=== PATIENT | male | born 1975 | race Caucasian/White ===

== ENCOUNTER 2016-07-30 09:47 | Inpatient (IN) | payer OTHER ==
[2016-07-30] MEDS ORDERED: Thiamine IV* 100 MG, Folic Acid IV* 1 MG, Multiple Vitamin IV ADULT* 10 ML in NS 0.9% 1... IV ONE (10:20)
[2016-07-30] MEDS ORDERED: LORazepam INJ* 2 MG/ML 1 ML VIAL IV PUSH ONE (10:21)
[2016-07-30 10:33] LABS: Hematocrit 47 % (42-52); Hemoglobin 16.3 g/dl (14.0-18.0); Mean Corpuscular HGB Conc 34 g/dl (31-36); Mean Corpuscular Hemoglobin 31 pg (27-31); Mean Corpuscular Volume 91 fL (80-94); Mean Platelet Volume 8 um3 (7.4-10.4); Red Blood Count 5.22 10^6/ul (4.0-5.4); Red Cell Distribution Width 13 % (10.5-15); White Blood Count 6.5 10^3/ul (3.5-10.8)
[2016-07-30] MEDS ORDERED: Ondansetron INJ* 2 MG/ML VIAL IV ONE (10:45)
[2016-07-30] MEDS ORDERED: Ondansetron INJ* 2 MG/ML VIAL ONE (10:46)
[2016-07-30 11:12] LABS: ALT 155 U/L (7-52); AST 184 U/L (13-39); Albumin 5.2 g/dL (3.2-5.2); Alkaline Phosphatase 76 U/L (34-104); Anion Gap 17 mmol/L (2-11); Blood Urea Nitrogen 12 mg/dL (6-24); CO2 Carbon Dioxide 26 mmol/L (22-32); Chloride 94 mmol/L (101-111); EGFR Non-African American 83.2 (>60); Globulin 2.4 g/dL (2-4); Glucose 98 mg/dL (70-100); Phosphorus 2.8 mg/dL (2.5-5.0); Potassium 4.1 mmol/L (3.5-5.0); Sodium 137 mmol/L (133-145); Total Protein 7.6 g/dL (6.4-8.9)
[2016-07-30 11:29] LABS: Acetaminophen < 15 mcg/mL; Alcohol 161 mg/dL (<10); Salicylate < 2.50 mg/dL (<30)
[2016-07-30 11:39] LABS: TSH (Thyroid Stimulating Horm) 1.82 mcIU/mL (0.34-5.60)
[2016-07-30 12:02] LABS: Urine Bacteria Absent (Absent); Urine Bilirubin Negative (Negative); Urine Glucose Negative (Negative); Urine Nitrite Negative (Negative)
--- NOTE | 2016-07-30 12:17 | ED ---
Substance Abuse/Use - HPI Summary HPI Summary: Pt here w/ concern for ETOH withdrawal and SI. H/o ETOH abuse but has been sober 1 year. Started drinking again 2 weeks ago and has been consuming multiple liters of ETOH each day. Last drink was "sometimes this morning". He's here as he feels suicidal since "falling off the wagon". He's been here before for SI s/p ETOH binge - went through withdrawal at his home on his own last time. Reports he had similar sx then plus seizures. Came in after physical sx improved. Today, he did not waste time coming in - feels shaky, sweating, hallucinating when he closes his eyes ("fear and loathing in [place] stuff"), nausea however has not vomited since here. Reports he vomited multiple times prior to arrival - believes he vomited blood. No known h/o esophageal varices or xin mckeon tears. Denies christiano ab pain and no diarrhea. - History Of Current Complaint Chief Complaint: EDDetoxRequest Stated Complaint: MHE/ETOH/WITHDRAWAL Time Seen by Provider: 07/30/16 10:18 Hx Obtained From: Patient - Allergies/Home Medications Allergies/Adverse Reactions: Allergies Allergy/AdvReac Type Severity Reaction Status Date / Time No Known Allergies Allergy Verified 05/03/16 11:22 PMH/Surg Hx/FS Hx/Imm Hx Previously Healthy: Yes Endocrine/Hematology History: Denies: Hx Anticoagulant Therapy, Hx Blood Disorders, Hx Diabetes Cardiovascular History: Denies: Hx Hypertension, Hx Pacemaker/ICD GI History: Denies: Hx Gastrointestinal Bleed History: Denies: Hx Renal Disease Musculoskeletal History: Denies: Hx Rheumatoid Arthritis, Hx Osteoporosis, Hx Scoliosis Sensory History: Denies: Hx Hearing Aid Neurological History: Denies: Hx Headaches, Other Neuro Impairments/Disorders Psychiatric History: Reports: Hx Post Traumatic Stress Disorder, Hx Suicide Attempt, Hx Substance Abuse - ETOH Denies: Hx Eating Disorder, Hx Panic Disorder, Hx Inpatient Treatment, Hx of Violent Episodes Against Others - Surgical History Surgery Procedure, Year, and Place: Rt HAND - SCAPHOID FX - PIN REMAIN Infectious Disease History: No Infectious Disease History: Denies: Traveled Outside the [place] in Last 30 Days - Social History Occupation: Employed Full-time, Retired - [employer] Lives: Alone - MOVED 2 WEEKS AGO FROM [place] WITH PARTNER Alcohol Use: Daily - "MULTIPLE LITERS DAILY X 2 WEEKS" Alcohol Amount: excessive, unable to quantify Hx Substance Use: No Substance Use Type: Reports: None Smoking Status (MU): Light Every Day Tobacco Smoker - SINCE STARTED DRINKING AGAIN Have You Smoked in the Last Year: Yes - occasional Review of Systems Positive: Chills, Fatigue, Skin Diaphoresis Positive: Blurred Vision Positive: Chest Pain - WHEN ASKED DETAILS, PT REPORTS THIS IS PART OF "PAIN ALL OVER" Negative: Shortness Of Breath, Cough Positive: Vomiting, Nausea. Negative: Abdominal Pain, Diarrhea Positive: no symptoms reported Musculoskeletal: Other - HURTS ALL OVER Negative: Rash, Bruising Positive: Headache Psychological: Other - SEE HPI All Other Systems Reviewed And Are Negative: Yes Physical Exam Triage Information Reviewed: Yes Vital Signs On Initial Exam: Initial Vitals Temp Pulse Resp BP Pulse Ox 97.2 F 100 16 155/119 98 07/30/16 09:49 07/30/16 09:49 07/30/16 09:49 07/30/16 09:49 07/30/16 09:49 Vital Signs Reviewed: Yes Appearance: Positive: Well-Nourished, Ill-Appearing, Pain Distress Skin: Positive: Warm, Other - MOIST Head/Face: Positive: Normal Head/Face Inspection Eyes: Positive: Normal, EOMI, Conjunctiva Clear - ANICTERIC Respiratory/Lung Sounds: Positive: Breath Sounds Present. Negative: Rales, Rhonchi, Wheezes Cardiovascular: Positive: Normal, RRR, Pulses are Symmetrical in both Upper and Lower Extremities, S1, S2. Negative: Leg Edema Left, Leg Edema Right Abdomen Description: Positive: No Organomegaly, Soft, Other: - mild epigastric TTP Bowel Sounds: Positive: Present Musculoskeletal: Positive: Normal, Strength/ROM Intact Neurological: Positive: Normal, Sensory/Motor Intact, Alert, Oriented to Person Place, Time, CN Intact II-III Psychiatric: Positive: Anxious - Makayla Coma Scale Coma Scale Total: 15 Diagnostics - Vital Signs Vital Signs Temp Pulse Resp BP Pulse Ox 07/30/16 11:00 15 138/77 07/30/16 10:42 18 07/30/16 10:32 18 07/30/16 10:30 19 130/100 07/30/16 10:08 14 143/88 07/30/16 09:49 97.2 F 100 16 155/119 98 - Laboratory Lab Results: Lab Results 07/30/16 07/30/16 07/30/16 Range/Units 10:23 10:23 10:23 WBC 6.5 (3.5-10.8) 10^3/ul RBC 5.22 (4.0-5.4) 10^6/ul Hgb 16.3 (14.0-18.0) g/dl Hct 47 (42-52) % MCV 91 (80-94) fL MCH 31 (27-31) pg MCHC 34 (31-36) g/dl RDW 13 (10.5-15) % Plt Count 200 (150-450) 10^3/ul MPV 8 (7.4-10.4) um3 Neut % (Auto) 80.2 (38-83) % Lymph % (Auto) 12.0 L (25-47) % [place] % (Auto) 6.5 (1-9) % Eos % (Auto) 0.3 (0-6) % Baso % (Auto) 1.0 (0-2) % Absolute Neuts (auto) 5.3 (1.5-7.7) 10^3/ul Absolute Lymphs (auto) 0.8 L (1.0-4.8) 10^3/ul Absolute Monos (auto) 0.4 (0-0.8) 10^3/ul Absolute Eos (auto) 0 (0-0.6) 10^3/ul Absolute Basos (auto) 0.1 (0-0.2) 10^3/ul Absolute Nucleated RBC 0 10^3/ul Nucleated RBC % 0 INR (Anticoag Therapy) 0.82 L (0.89-1.11) APTT 28.0 (26.0-36.3) seconds Sodium 137 (133-145) mmol/L Potassium 4.1 (3.5-5.0) mmol/L Chloride 94 L (101-111) mmol/L Carbon Dioxide 26 (22-32) mmol/L Anion Gap 17 H (2-11) mmol/L BUN 12 (6-24) mg/dL Creatinine 1.00 (0.67-1.17) mg/dL Est GFR ( Amer) 107.0 (>60) Est GFR (Non-Af Amer) 83.2 (>60) BUN/Creatinine Ratio 12.0 (8-20) Glucose 98 (70-100) mg/dL Calcium 10.0 (8.6-10.3) mg/dL Phosphorus 2.8 (2.5-5.0) mg/dL Magnesium 2.0 (1.9-2.7) mg/dL Total Bilirubin 0.90 (0.2-1.0) mg/dL AST 184 H (13-39) U/L ALT 155 H (7-52) U/L Alkaline Phosphatase 76 (34-104) U/L Total Protein 7.6 (6.4-8.9) g/dL Albumin 5.2 (3.2-5.2) g/dL Globulin 2.4 (2-4) g/dL Albumin/Globulin Ratio 2.2 (1-3) TSH 1.82 (0.34-5.60) mcIU/mL Urine Color Urine Appearance Urine pH (5-9) Ur Specific [place] (1.010-1.030) Urine Protein (Negative) Urine Ketones (Negative) Urine Blood (Negative) Urine Nitrate (Negative) Urine Bilirubin (Negative) Urine Urobilinogen (Negative) Ur Leukocyte Esterase (Negative) Urine WBC (Auto) (Absent) Urine RBC (Auto) (Absent) Urine Bacteria (Absent) Urine Glucose (Negative) Salicylates < 2.50 (<30) mg/dL Acetaminophen < 15 mcg/mL Serum Alcohol 161 H (<10) mg/dL 07/30/16 Range/Units 11:45 WBC (3.5-10.8) 10^3/ul RBC (4.0-5.4) 10^6/ul Hgb (14.0-18.0) g/dl Hct (42-52) % MCV (80-94) fL MCH (27-31) pg MCHC (31-36) g/dl RDW (10.5-15) % Plt Count (150-450) 10^3/ul MPV (7.4-10.4) um3 Neut % (Auto) (38-83) % Lymph % (Auto) (25-47) % [place] % (Auto) (1-9) % Eos % (Auto) (0-6) % Baso % (Auto) (0-2) % Absolute Neuts (auto) (1.5-7.7) 10^3/ul Absolute Lymphs (auto) (1.0-4.8) 10^3/ul Absolute Monos (auto) (0-0.8) 10^3/ul Absolute Eos (auto) (0-0.6) 10^3/ul Absolute Basos (auto) (0-0.2) 10^3/ul Absolute Nucleated RBC 10^3/ul Nucleated RBC % INR (Anticoag Therapy) (0.89-1.11) APTT (26.0-36.3) seconds Sodium (133-145) mmol/L Potassium (3.5-5.0) mmol/L Chloride (101-111) mmol/L Carbon Dioxide (22-32) mmol/L Anion Gap (2-11) mmol/L BUN (6-24) mg/dL Creatinine (0.67-1.17) mg/dL Est GFR ( Amer) (>60) Est GFR (Non-Af Amer) (>60) BUN/Creatinine Ratio (8-20) Glucose (70-100) mg/dL Calcium (8.6-10.3) mg/dL Phosphorus (2.5-5.0) mg/dL Magnesium (1.9-2.7) mg/dL Total Bilirubin (0.2-1.0) mg/dL AST (13-39) U/L ALT (7-52) U/L Alkaline Phosphatase (34-104) U/L Total Protein (6.4-8.9) g/dL Albumin (3.2-5.2) g/dL Globulin (2-4) g/dL Albumin/Globulin Ratio (1-3) TSH (0.34-5.60) mcIU/mL Urine Color Yellow Urine Appearance Clear Urine pH 8.0 (5-9) Ur Specific [place] 1.020 (1.010-1.030) Urine Protein 2+(100 mg/dl) H (Negative) Urine Ketones 1+ H (Negative) Urine Blood Negative (Negative) Urine Nitrate Negative (Negative) Urine Bilirubin Negative (Negative) Urine Urobilinogen Negative (Negative) Ur Leukocyte Esterase Negative (Negative) Urine WBC (Auto) Absent (Absent) Urine RBC (Auto) Trace(0-2/hpf) (Absent) Urine Bacteria Absent (Absent) Urine Glucose Negative (Negative) Salicylates (<30) mg/dL Acetaminophen mcg/mL Serum Alcohol (<10) mg/dL Result Diagrams: 07/30/16 10:23 07/30/16 10:23 Lab Statement: Any lab studies that have been ordered have been reviewed, and results considered in the medical decision making process. Re-Evaluation - Re-Evaluation First Eval Change: Improved - shakiness, anxiety, and nausea improved - was able to rest for a brief period - ice chips are helping his stomach discomfort; feels comfortable resting in stretcher at this time Course/Dx - Course Course Of Treatment: Pt here w/ ETOH intoxication and withdrawal sx - WAM score of 12 upon initial eval - provided w/ Banana bag, zofran, and ativan which improved sx - vitals have been stable. Will admit for ETOH withdrawal - spoke w / Dr. Smith and Nilesh Banegas NP. Pt will need evaluation as well for - Christoph neon sign maker aware. - Diagnoses Provider Diagnoses: EtOH dependence, Suicidal ideation - Physician Notifications Discussed Care Of Patient With: Dr. Smith. Nilesh Banegas NP. Christoph Afua Discharge - Discharge Plan Condition: Stable Disposition: ADMITTED TO [facility]
[2016-07-30 12:21] LABS: Benzodiazepine Urine Screen None Detected (None Detect)
[2016-07-30] MEDS ORDERED: NS 0.9% 1000 ML* 1,000 ML IV SCH (12:30)
[2016-07-30] MEDS ORDERED: LORazepam TAB(*) 1 MG PO SCH ×2 (13:00)
[2016-07-30] MEDS ORDERED: Diazepam TAB(*) 10 MG PO SCH (13:00)
[2016-07-30] MEDS ORDERED: LORazepam INJ* 2 MG/ML 1 ML VIAL ONE (13:16)
[2016-07-30] MEDS: LORazepam INJ* 2 MG/ML 1 ML VIAL IV SCH ×5 (13:17→23:51)
[2016-07-30] MEDS: Ondansetron INJ* 2 MG/ML VIAL IV PRN (14:30)
[2016-07-30 16:01] LABS: Hematocrit 47 % (42-52); Hemoglobin 16.1 g/dl (14.0-18.0)
[2016-07-30] MEDS: Acetaminophen TAB* 325 MG PO PRN (16:48)
--- NOTE | 2016-07-30 20:38 | HP ---
ATTENDING PHYSICIAN ADDENDUM NOW INCLUDED ON THIS REPORT HISTORY AND PHYSICAL: DATE OF ADMISSION: 07/30/16 PRIMARY CARE PROVIDER: Dr. Arturo Shelton. ATTENDING PHYSICIAN WHILE IN THE HOSPITAL: Dr. Rosa Smith *(report dictated by Nilesh Banegas NP). CHIEF COMPLAINT: 1. Suicidal ideation 2. EtOH withdrawal. HISTORY OF PRESENTING ILLNESS: Mr. Burrows is a 41-year-old male patient, he has a history of alcoholism. He had been sober for 1 year but he had been having some issues going on at home. He is going through a breakup. About 2 weeks ago, he moved out of his house. He was under a lot of stress and he reverted back to drinking. He ultimately went from his house, moved into an apartment, he states he has drinking straight for 2 weeks. He got to the point today that he knew that he needed to stop and he felt worthless because he had thrown away his sobriety that he worked so hard for. He said he was going to try to buy a gun but could not. He was going to try to drink himself to . He knew that if he did not stop drinking, he probably ultimately would commit suicide either by cutting his wrist or by other means. He got in touch with a friend who helped him. He stopped drinking in the recreation director last night and he noted this morning that he was shaking. He was vomiting profusely. He was very anxious and restless. He called his friend and his friend brought him into the ER for evaluation. He denies having any chest pain or any shortness of breath. He says he has not had any fevers. He denies having any abdominal discomfort. Says that he had been again sober for a year prior to this episode. He was concerned. He came to the ER. When he came into the ER, he scored a 12 on the WAM protocol. Because of this, there was concern for his stability for mental health, so the hospitalist service was asked to evaluate in admission. PAST MEDICAL HISTORY: Significant for EtOH abuse. PAST SURGICAL HISTORY: He has had hand surgery. HOME MEDICATIONS: Denied. ALLERGIES TO MEDICATIONS: Include no known drug allergies. FAMILY HISTORY: Unknown. SOCIAL HISTORY: He is an alcoholic, he had been sober for a year and states that he typically goes on binge episodes of drinking. He denies any other recreational drug abuse. Surrogate decision maker is his friend, Michael. REVIEW OF SYSTEMS: There is no documented fever. He denied any significant weight change. There was no double vision. There is no ear discharge. He denies having any rhinorrhea. There is no sore throat. No thyroid enlargement. Denies having any chest pain. There is no orthopnea, no nocturnal dyspnea. No abdominal pain. There were episodes of nausea with vomiting particularly starting last night when he had stopped drinking. He denies any lightheadedness, denies any loss of consciousness. Denies any pruritus and no skin ulcerations. Review of 14 systems completed, all others negative. PHYSICAL EXAMINATION GENERAL: At this time, Mr. Burrows is a 41-year-old male patient. He appears well-developed, well-nourished. He does not appear to be in any acute distress. He is awake and alert, he is oriented x3. VITAL SIGNS: Reveals blood pressure 138/77, pulse 80, respirations 15, O2 sat 98%, and temperature 97.2. HEENT: Head: Atraumatic, normocephalic. Eyes: EOMs are intact. Sclerae anicteric and not pale. Throat: Oral mucosa appears to be moist. No oropharyngeal erythema. NECK: Supple. LUNGS: Clear to auscultation bilaterally. No wheezes, rales, or rhonchi HEART: S1, S2. Regular rate and rhythm with no murmurs, rubs, or gallops. ABDOMEN: Soft, flat, nontender. Bowel sounds present. EXTREMITIES: Pulses were 2+ throughout. He was able to move all 4 extremities with 5/5 strength. NEUROLOGIC: The patient is awake, alert, and oriented x3. Tongue midline. Deliverer Merchandise were equal. No gross focal deficits. SKIN: Grossly intact. DIAGNOSTIC STUDIES/LAB DATA: Today revealed WBC of 6.5, RBC of 5.22, hemoglobin of 16.3, hematocrit of 47, and platelet count of 200. INR 0.82, PTT 28. Sodium 137, potassium 4.1, chloride 94, bicarb 26, BUN 12, creatinine 1, glucose 98, calcium 10.0, phos 2.8, total bili 0.9, mag 2, AST 184, ALT 155, albumin of 5.2. TSH of 1.82. Urine showed 2 proteins, 1 ketone. Toxicology: He had 161 alcohol level. He had an EKG obtained today as well which revealed a normal sinus rhythm at a rate of 76. No ST elevations or T-wave inversions. Old medical records were reviewed. ASSESSMENT AND PLAN: Mr. Burrows is a 41-year-old male patient coming into the ER today with a request for detox. Also, stating that he was suicidal and had been undergoing a 2-week period of heavy binge drinking, he says at least a liter of alcohol a day. Hospitalist service was asked to evaluate for admission. His WAM score here was 12 when he first came in, it was felt that he was not going to be stable for mental health. Hospitalist service was asked to evaluate. He will be admitted under observation status for: 1. EtOH abuse with signs of withdrawal. At this point, he does have a history of seizures with withdrawing. So, I am going to put him on standing Ativan taper. In addition to this, put him on the WAM protocol. He is suicidal, so I did put him on a one-to-one watch. He did get a banana bag here in the ER, we will go ahead and continue thiamine and a multivitamin and folic acid. We will hydrate him and start him on a clear liquid diet. I suspect the nausea and vomiting is from him withdrawing from alcohol. We will continue to monitor. There was report of one episode of him vomiting blood. I will get a repeat H and H later today, but I suspect if anything, he may have a mild Sariah-Esposito tear. We will monitor should he continue with this and obviously, we will get a formal GI evaluation and I will put him on a PPI empirically in the form of Protonix. 2. Suicidal ideation. He will be on a one-to-one safety watch. In addition to this, we will go ahead and get a psychiatric evaluation. 3. DVT prophylaxis. He is low risk, he will be placed on SCDs. 4. Fluid, electrolytes, and nutrition. He can have clear liquid diet. 5. Code status. Full code. TIME SPENT: On this admission was 60 minutes, greater than half the time was spent [id number] with the patient, obtaining my history of physical; the other half time was spent going over the plan of care with the patient and implementing plan of care. I did discuss the plan of care with my attending, Dr. Smith; she is in agreement. NILESH BANEGAS NP ADDENDUM: Mr. Burrows is a 41-year-old male with history of alcoholism, who presents to the hospital with alcohol intoxication and withdrawing symptoms as well as hallucinations. The patient also has suicidal ideation. The patient is going to be admitted to our hospital with a diagnosis of alcohol withdrawal. He is also going to be placed on suicide observation and psychiatric consult is going to be requested in the future. For further details of the patient's presentation and plan, please see history and physical dictated by Nilesh Banegas on 07/30/16 with which I agree. ROSA SMITH MD CC: [place] [id number]/[facility] #: [id number]/[facility] #: [id number] MTDD
--- NOTE | 2016-07-30 21:12 | HP ---
HISTORY AND PHYSICAL: * ADDENDUM: Mr. Burrows is a 41-year-old male with history of alcoholism, who presents to the hospital with alcohol intoxication and withdrawing symptoms as well as hallucinations. The patient also has suicidal ideation. The patient is going to be admitted to our hospital with a diagnosis of alcohol withdrawal. He is also going to be placed on suicide observation and psychiatric consult is going to be requested in the future. For further details of the patient's presentation and plan, please see history and physical dictated by Nilesh Banegas on 07/30/16 with which I agree. [id number]/[facility] #: [id number] MTDD
[2016-07-31] MEDS: Ondansetron INJ* 2 MG/ML VIAL IV PRN (02:04)
[2016-07-31] MEDS: LORazepam INJ* 2 MG/ML 1 ML VIAL IV SCH ×5 (02:04→17:34)
[2016-07-31] MEDS: Acetaminophen TAB* 325 MG PO PRN ×4 (03:30→23:29)
[2016-07-31 06:10] LABS: Hematocrit 44 % (42-52); Mean Corpuscular HGB Conc 34 g/dl (31-36); Mean Corpuscular Hemoglobin 31 pg (27-31); Mean Corpuscular Volume 92 fL (80-94); Mean Platelet Volume 9 um3 (7.4-10.4); Red Blood Count 4.81 10^6/ul (4.0-5.4); Red Cell Distribution Width 13 % (10.5-15); White Blood Count 5.8 10^3/ul (3.5-10.8)
[2016-07-31 06:24] LABS: BUN/Creatinine Ratio 15.5 (8-20); Calcium 9.1 mg/dL (8.6-10.3); Direct Bilirubin 0.3 mg/dL (0.03-0.18); EGFR African American 103.4 (>60); EGFR Non-African American 80.4 (>60); Globulin 2.3 g/dL (2-4); Indirect Bilirubin 1.1 mg/dL (0.3-1.0); Potassium 3.8 mmol/L (3.5-5.0); Total Bilirubin 1.4 mg/dL (0.2-1.0); Total Protein 6.3 g/dL (6.4-8.9)
[2016-07-31] MEDS: Omeprazole CAP* 20 MG PO SCH (06:43)
[2016-07-31] MEDS: Folic Acid TAB* 1 MG PO SCH (08:59)
[2016-07-31] MEDS: Multivitamins/Minerals TAB PO SCH (08:59)
[2016-07-31] MEDS: Thiamine TAB* 100 MG TAB PO SCH (08:59)
[2016-07-31] MEDS ORDERED: Folic Acid TAB* 1 MG PO SCH (09:00)
[2016-07-31] MEDS ORDERED: Multivitamins/Minerals TAB PO SCH (09:00)
--- NOTE | 2016-07-31 09:27 | PN ---
Subjective Date of Service: 07/31/16 Interval History: This is a 41 yo gentleman with a h/o alcoholism who presented in withdrawal with suicidal ideations. Patient was admitted to the medical floor for withdrawal. Patient had been sober for several years, but has been on a binge for the last 2 weeks. Patient reports improvement in his anxiety and tremulousness. Denies n/v/d or abd pain. Appetite is poor but he is tolerating a regular diet. He is unwilling to comment on his feelings of self harm today, but reports "he doesn' t feel anything" today. Objective Active Medications: Acetaminophen (Tylenol Tab*) 650 mg PO Q4H PRN PRN Reason: PAIN Last Admin: 07/31/16 03:30 Dose: 650 mg Folic Acid (Folvite Tab*) 1 mg PO DAILY CHIDI Last Admin: 07/31/16 08:59 Dose: 1 mg Sodium Chloride (Ns 0.9% 1000 Ml*) 1,000 mls @ 100 mls/hr IV PER RATE CHIDI Lorazepam (Ativan Inj*) 0 mg IV .PER WAM SCORE [facility] PRN Reason: Protocol Last Admin: 07/31/16 02:04 Dose: 1 mg Lorazepam (Ativan Inj*) 1 mg IV Q12H CHIDI PRN Reason: Taper Stop: 08/02/16 09:59 Last Admin: 07/31/16 07:24 Dose: 1 mg Multivitamins/Minerals (Theragran/Minerals Tab*) 1 tab PO DAILY CHIDI Last Admin: 07/31/16 08:59 Dose: 1 tab Omeprazole (Prilosec Cap*) 20 mg PO 0600 [facility] Last Admin: 07/31/16 06:43 Dose: 20 mg Ondansetron HCl (Zofran Inj*) 4 mg IV Q6H PRN PRN Reason: NAUSEA Last Admin: 07/31/16 02:04 Dose: 4 mg Thiamine HCl (Vitamin B-1 Tab*) 100 mg PO DAILY [facility] Last Admin: 07/31/16 08:59 Dose: 100 mg Vital Signs: Temp Pulse Resp BP Pulse Ox 98.0 F 63 16 114/64 96 07/31/16 07:09 07/31/16 07:09 07/31/16 08:24 07/31/16 07:09 07/31/16 07:09 Oxygen Devices in Use Now: None Appearance: Somewhat guarded, but well appearing, mild tremor Respiratory: Symmetrical Chest Expansion and Respiratory Effort, Clear to Auscultation Cardiovascular: NL Sounds; No Murmurs; No JVD, RRR Extremities: No Edema Skin: No Rash or Ulcers Neurological: Alert and Oriented x 3, - - mild tremor present in hands Result Diagrams: 07/31/16 05:47 07/31/16 05:47 Additional Lab and Data: . Assess/Plan/Problems-Billing Assessment: This is a 41 yo gentleman with a history of alcoholism who presented in withdrawal with suicidal ideations. He has had a long period of sobriety, but recently was on a binge of ~2 weeks. Psychiatry requested a medical admission for his withdrawal. - Patient Problems (1) Alcohol withdrawal Comment: Noted improvement, but still require regular benzos He has experienced seizures and hallucinations with prior withdrawal Cont WAM monitoring with scheduled tapering doses of Ativan for seizure prophylaxis (2) Alcoholic hepatitis Comment: Noted transaminitis with elevated Tbili Likely alcohol related No abdominal pain or evidence of ascites Repeat CMP tomorrow (3) Suicidal ideation Comment: Psych consult pending Cont 1:1 observation at this time Status and Disposition: Patient requires medical care for alcohol withdrawal. Psych consult is pending to help determine appropriate disposition. Anticipate readiness for discharge in 2-3 days.
[2016-07-31] MEDS: Gabapentin CAP(*) 300 MG PO SCH ×2 (12:50→20:48)
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
[2016-08-01 06:02] LABS: Albumin 4.1 g/dL (3.2-5.2); BUN/Creatinine Ratio 9.3 (8-20); Calcium 9.1 mg/dL (8.6-10.3); EGFR African American 127.3 (>60); Globulin 2.4 g/dL (2-4); Potassium 3.7 mmol/L (3.5-5.0); Total Bilirubin 0.9 mg/dL (0.2-1.0); Total Protein 6.5 g/dL (6.4-8.9)
[2016-08-01] MEDS: Ondansetron INJ* 2 MG/ML VIAL IV PRN (06:54)
[2016-08-01] MEDS: Omeprazole CAP* 20 MG PO SCH (06:54)
[2016-08-01] MEDS: Acetaminophen TAB* 325 MG PO PRN ×2 (06:54→19:40)
[2016-08-01] MEDS: Gabapentin CAP(*) 300 MG PO SCH ×3 (07:18→22:12)
[2016-08-01] MEDS: Multivitamins/Minerals TAB PO SCH (07:18)
[2016-08-01] MEDS: Thiamine TAB* 100 MG TAB PO SCH (07:18)
[2016-08-01] MEDS: Folic Acid TAB* 1 MG PO SCH (07:19)
[2016-08-01] MEDS: LORazepam INJ* 2 MG/ML 1 ML VIAL IV SCH ×2 (07:19→19:40)
--- NOTE | 2016-08-01 10:54 | PN ---
Subjective Date of Service: 08/01/16 Interval History: Patient has noted improvement. Decreased tremulousness. He has not scored with the WAM protocol in almost 24 hours. Denies nausea, vomiting or diarrhea. Some headache, which somewhat helped with Tylenol. He still feels a little "foggy" mentally. Seems to be tolerating the gabapentin without adverse effects. Denies any new acute complaints. Objective Active Medications: Acetaminophen (Tylenol Tab*) 650 mg PO Q4H PRN PRN Reason: PAIN Last Admin: 08/01/16 06:54 Dose: 650 mg Folic Acid (Folvite Tab*) 1 mg PO DAILY [facility] Last Admin: 08/01/16 07:19 Dose: 1 mg Gabapentin (Neurontin Cap(*)) 600 mg PO TID [facility] Last Admin: 08/01/16 07:18 Dose: 600 mg Lorazepam (Ativan Inj*) 0 mg IV .PER WAM SCORE [facility] PRN Reason: Protocol Last Admin: 07/31/16 12:52 Dose: 1 mg Lorazepam (Ativan Inj*) 1 mg IV Q12H [facility] PRN Reason: Taper Stop: 08/02/16 09:59 Last Admin: 08/01/16 07:19 Dose: 1 mg Multivitamins/Minerals (Theragran/Minerals Tab*) 1 tab PO DAILY [facility] Last Admin: 08/01/16 07:18 Dose: 1 tab Omeprazole (Prilosec Cap*) 20 mg PO 0600 [facility] Last Admin: 08/01/16 06:54 Dose: 20 mg Ondansetron HCl (Zofran Inj*) 4 mg IV Q6H PRN PRN Reason: NAUSEA Last Admin: 08/01/16 06:54 Dose: 4 mg Thiamine HCl (Vitamin B-1 Tab*) 100 mg PO DAILY [facility] Last Admin: 08/01/16 07:18 Dose: 100 mg Vital Signs: Temp Pulse Resp BP Pulse Ox 97.4 F 81 16 122/78 98 08/01/16 03:40 08/01/16 08:12 08/01/16 09:18 08/01/16 08:12 08/01/16 08:12 Oxygen Devices in Use Now: None Appearance: Well appearing, in NAD. Respiratory: Symmetrical Chest Expansion and Respiratory Effort, Clear to Auscultation Cardiovascular: NL Sounds; No Murmurs; No JVD, RRR Abdominal: NL Sounds; No Tenderness; No Distention Extremities: No Edema Skin: No Rash or Ulcers Neurological: Alert and Oriented x 3 Result Diagrams: 07/31/16 05:47 08/01/16 05:15 Additional Lab and Data: . Assess/Plan/Problems-Billing Assessment: This is a 41 yo gentleman with a history of alcoholism who presented in withdrawal with suicidal ideations. He has had a long period of sobriety, but recently was on a binge of ~2 weeks. Psychiatry requested a medical admission for his withdrawal. - Patient Problems (1) Alcohol withdrawal Comment: Noted improvement, he has not required additonal Ativan in ~24hrs, still receiving scheduled tapering doses Appears to be tolerating gabapentin well, which was recommended by psychiatry He has experienced seizures and hallucinations with prior withdrawal Will decreased frequency of WAM monitoring to every 6hours (2) Alcoholic hepatitis Comment: Noted transaminitis with elevated Tbili Likely alcohol related No abdominal pain or evidence of ascites Noted improvement in Tbili today and transaminases appear fairly stable No intervention required at this time (3) Suicidal ideation Comment: Psych consult has been appreciated Re-evaluation is pending this am Status and Disposition: Patient requires monitoring for alcohol withdrawal. Anticipate readiness for discharge from the medical service tomorrow. Will discuss appropriate disposition with psychiatry.
[2016-08-01] MEDS ORDERED: LORazepam INJ* 2 MG/ML 1 ML VIAL IV PUSH ONE (22:00)
[2016-08-02] MEDS: LORazepam INJ* 2 MG/ML 1 ML VIAL IV SCH (06:27)
[2016-08-02] MEDS: Omeprazole CAP* 20 MG PO SCH (06:27)
[2016-08-02] MEDS: Folic Acid TAB* 1 MG PO SCH (08:04)
[2016-08-02] MEDS: Thiamine TAB* 100 MG TAB PO SCH (08:04)
[2016-08-02] MEDS: Gabapentin CAP(*) 300 MG PO SCH (08:04)
[2016-08-02] MEDS: Multivitamins/Minerals TAB PO SCH (08:04)
[2016-08-02] MEDS ORDERED: CMC:Naltrexone (NF) 50 MG TAB PO SCH (09:00)
[2016-08-02] MEDS: Docusate CAP* 100 MG PO SCH ×2 (09:23→22:06)
[2016-08-02] MEDS: Acetaminophen TAB* 325 MG PO PRN (11:24)
[2016-08-02] MEDS ORDERED: hydrOXYzine HCL TAB* 50 MG PO PRN (11:28)
--- NOTE | 2016-08-02 11:34 | CONSULT ---
Identification - Patient Identification Reason for Psychiatric Consultation: Suicidal Ideation -: Patient is a 41 year old, M admitted on 07/31/16. - MHU Identification Employment Status: Unemployed Hx Psychiatric Hospitalization: Yes Arrived to Hospital Via: Ambulatory History - Objective HPI: The patient is seen for psychiatric follow up. Dr. Manjinder Helm's consultation and f/u note from this weekend are reviewed and his case is discussed with the primary team. Mr. Burrows is endorsing situational anxiety related to his homeless and jobless status but is otherwise feeling better. He is tolerating his medications and denies any SI or thoughts of self-harm. The patient's plan is to be d/c to [facility] services tomorrow in order to seek emergency housing and funds and will f/u with the [facility] in [place], [place] for substance abuse treatment. The patient is requesting prn anxiety medication and willing to try hydroxyzine. He is re-educated on the rationale for naltrexone and wishes to continue this. He indicates that he has a primary care provider, Dr. Arturo Shelton, in the community whom he can follow up with on this. Lab Results: Laboratory Tests 08/01/16 05:15 Sodium 131 L Potassium 3.7 Chloride 99 L Carbon Dioxide 26 Anion Gap 6 BUN 8 Creatinine 0.86 Est GFR ( Amer) 127.3 Est GFR (Non-Af Amer) 99.0 BUN/Creatinine Ratio 9.3 Glucose 129 H Calcium 9.1 Total Bilirubin 0.90 AST 132 H ALT 129 H Alkaline Phosphatase 72 Total Protein 6.5 Albumin 4.1 Globulin 2.4 Albumin/Globulin Ratio 1.7 Exam Appearance: Well Developed/Nourished Hygiene: Normal Grooming: Well Kept Psychomotor Activities: Normal Exhibits Abnormal Movement: No Attitude and Relatedness: Cooperative Eye Contact: Good - Speech Quality: Unpressured Latencies: Normal Quantity: Appropriate Patient's Decription of Mood: "Anxious" Observed Affect: Fair Patient's Thought Process: Coherent Thought Content: No Passive Wish, No Suicidal Planning, No Homicidal Ideation, No Paranoid Ideation Experiencing Hallucinations: No, Sensorium is Clear Type of Hallucinations: Visual: No, Auditory: No, Command: No Level of Consciousness: Alert Orientation: Yes Intact, Yes Orientated to Time, Yes Orientated to Place, Yes Orientated to Person Impulse Control: Intact Insight and Judgement: Good Impression - Impression Clinical Impression: 41 y.o. single white male with alcohol use disorder admitted for ETOH detox in setting of recent relapse following one year of abstinance. The patient denies SI and is pending d/c tomorrow. Merits Inpatient Hospitalization: No Problem List - U Problems Type of Problem: Mood Status of Problem: Resolved Plan - Treatment Plan Treatment Plan: Recommend d/c tomorrow to outpatient treatment with [facility]. Patient is not suicidal and will not require psychiatric inpatient care. His issues are predominantly substance-related and he will not require outpatient f/u. Recommend increase naltrexone to 50mg PO qday. Dr. Arturo Shelton, his PCP, can manage this. Will d/c gabapentin and start hydroxyzine 50mg PO q6h for anxiety management. Psychiatry is signing off. Continued Medication Management: Different Medication Medications: Current Medications Acetaminophen (Tylenol Tab*) 650 mg PO Q4H PRN PRN Reason: PAIN Last Admin: 08/02/16 11:24 Dose: 650 mg Docusate Sodium (Colace Cap*) 100 mg PO BID [facility] Last Admin: 08/02/16 09:23 Dose: Not Given Folic Acid (Folvite Tab*) 1 mg PO DAILY [facility] Last Admin: 08/02/16 08:04 Dose: 1 mg Hydroxyzine HCl (Atarax Tab*) 50 mg PO Q6H PRN PRN Reason: ANXIETY Lorazepam (Ativan Inj*) 0 mg IV .PER WAM SCORE [facility] PRN Reason: Protocol Last Admin: 07/31/16 12:52 Dose: 1 mg Multivitamins/Minerals (Theragran/Minerals Tab*) 1 tab PO DAILY [facility] Last Admin: 08/02/16 08:04 Dose: 1 tab Naltrexone HCl (Naltrexone (Nf)) 50 mg PO DAILY [facility] PRN Reason: Protocol Omeprazole (Prilosec Cap*) 20 mg PO 0600 [facility] Last Admin: 08/02/16 06:27 Dose: 20 mg Ondansetron HCl (Zofran Inj*) 4 mg IV Q6H PRN PRN Reason: NAUSEA Last Admin: 08/01/16 06:54 Dose: 4 mg Thiamine HCl (Vitamin B-1 Tab*) 100 mg PO DAILY [facility] Last Admin: 08/02/16 08:04 Dose: 100 mg - Discharge Plan Discharge Plan: Outpatient Follow Up
--- NOTE | 2016-08-02 17:05 | PN ---
Subjective Date of Service: 08/02/16 Interval History: Patient reports improvement in his symptoms today. His anxiety is improving. His mentation is improving. He denies, n/v/d. He offers no acute complaints. Objective Active Medications: Acetaminophen (Tylenol Tab*) 650 mg PO Q4H PRN PRN Reason: PAIN Last Admin: 08/02/16 11:24 Dose: 650 mg Docusate Sodium (Colace Cap*) 100 mg PO BID [facility] Last Admin: 08/02/16 09:23 Dose: Not Given Folic Acid (Folvite Tab*) 1 mg PO DAILY [facility] Last Admin: 08/02/16 08:04 Dose: 1 mg Hydroxyzine HCl (Atarax Tab*) 50 mg PO Q6H PRN PRN Reason: ANXIETY Lorazepam (Ativan Inj*) 0 mg IV .PER WAM SCORE [facility] PRN Reason: Protocol Last Admin: 07/31/16 12:52 Dose: 1 mg Multivitamins/Minerals (Theragran/Minerals Tab*) 1 tab PO DAILY [facility] Last Admin: 08/02/16 08:04 Dose: 1 tab Naltrexone HCl (Naltrexone (Nf)) 50 mg PO DAILY [facility] PRN Reason: Protocol Omeprazole (Prilosec Cap*) 20 mg PO 0600 [facility] Last Admin: 08/02/16 06:27 Dose: 20 mg Ondansetron HCl (Zofran Inj*) 4 mg IV Q6H PRN PRN Reason: NAUSEA Last Admin: 08/01/16 06:54 Dose: 4 mg Thiamine HCl (Vitamin B-1 Tab*) 100 mg PO DAILY [facility] Last Admin: 08/02/16 08:04 Dose: 100 mg Vital Signs: Temp Pulse Resp BP Pulse Ox 97.4 F 65 16 131/70 98 08/02/16 16:06 08/02/16 16:06 08/02/16 16:06 08/02/16 16:06 08/02/16 16:06 Oxygen Devices in Use Now: None Appearance: Well appearing, in NAD Respiratory: Symmetrical Chest Expansion and Respiratory Effort Cardiovascular: NL Sounds; No Murmurs; No JVD, RRR Abdominal: NL Sounds; No Tenderness; No Distention Skin: No Rash or Ulcers Neurological: Alert and Oriented x 3 Result Diagrams: 07/31/16 05:47 08/01/16 05:15 Additional Lab and Data: . Assess/Plan/Problems-Billing Assessment: This is a 41 yo gentleman with a history of alcoholism who presented in withdrawal with suicidal ideations. He has had a long period of sobriety, but recently was on a binge of ~2 weeks. Psychiatry requested a medical admission for his withdrawal. - Patient Problems (1) Alcohol withdrawal Comment: Patient has improved significantly, he has not scored with the WAM protocol in ~ 48hrs and has nearly completed the scheduled Ativan protocol He has experienced seizures and hallucinations with prior withdrawal Tolerating naltrexone well, will increase dose to 50 mg daily (2) Alcoholic hepatitis Comment: Noted transaminitis with elevated Tbili Likely alcohol related No abdominal pain or evidence of ascites Noted improvement in Tbili today and transaminases appear fairly stable No intervention required at this time (3) Suicidal ideation Comment: Resolved Psych consult has been appreciated Dr Ignacio has recommended discontinuing the gabapentin and instead using prn Hydroxyzine for anxiety management Status and Disposition: Anticipate discharge tomorrow. Patient is unfortunately homeless and will be discharged to [facility] for a bed in the alf with support from [facility] for rehab.
[2016-08-03] MEDS: Acetaminophen TAB* 325 MG PO PRN (03:34)
[2016-08-03] MEDS: Omeprazole CAP* 20 MG PO SCH (06:11)
[2016-08-03 06:14] VITALS: BP 111/72
[2016-08-03] MEDS: Docusate CAP* 100 MG PO SCH (08:19)
[2016-08-03] MEDS: Folic Acid TAB* 1 MG PO SCH (08:20)
[2016-08-03] MEDS: Thiamine TAB* 100 MG TAB PO SCH (08:20)
[2016-08-03] MEDS: Multivitamins/Minerals TAB PO SCH (08:20)
[2016-08-03] MEDS ORDERED: NALTREXONE 50 MG PO SCH (09:00)
--- NOTE | 2016-08-03 20:15 | DS ---
DISCHARGE SUMMARY: DATE OF ADMISSION: 07/30/16 DATE OF DISCHARGE: 08/03/16 PRIMARY CARE PROVIDER: Unknown. DISCHARGING PROVIDER: JAQUELIN Mathews. SUPERVISING PHYSICIAN: Ann Marie Rousseau DO. * (dictated by JAQUELIN Mathews) PRIMARY DISCHARGE DIAGNOSES: 1. Acute alcohol withdrawal. 2. Suicidal ideation. 3. Alcoholic hepatitis. DISCHARGE MEDICATIONS: 1. Folic acid 1 mg p.o. daily. 2. Naltrexone 50 mg p.o. daily. 3. Thiamine 100 mg p.o. daily. 4. Hydroxyzine 50 mg p.o. q.6 hours p.r.n. anxiety. HOSPITAL IMAGING: EKG shows a normal sinus rhythm. HOSPITAL COURSE: This is a pleasant 41-year-old gentleman with a history of alcoholism, who came in in acute withdrawal with suicidal ideations. The patient had recently broken up with his girlfriend and had been on a binge of consuming liquor for approximately 2 weeks prior to presentation. The patient has a known history of alcoholism but had been sober for approximately 1 year prior to this binge and had been successful with his prior rehab attempt. He was noted to be significantly tremulous, borderline tachycardic and hypertensive when he reached the emergency department. Initial labs showed a normal CBC. Comprehensive metabolic panel was significant only for elevated transaminases with an AST of 184 and ALT of 155 as of 08/01/16, transaminases had improved to 132 and 129 respectively with a normal alk phos and total bilirubin. Tox screen was negative but serum alcohol level was 161. Due to severity of the patient's withdrawal, Psychiatry requested medical admission for his withdrawal. He was started on WAM protocol and a tapering Ativan course for seizure prophylaxis. The patient did quite well during his hospital stay. He had not required additional doses of Ativan for approximately 48 hours prior to discharge. Psychiatry was involved during his hospital stay and he was reevaluated on numerous occasions. The patient's suicidal ideation subsided as he completed his withdrawal. Inpatient psychiatric admission was not indicated. The patient is willing to participate in outpatient rehab and has done so in the past. He has contact information for [facility]. DISPOSITION AND DISCHARGE PLAN: The patient unfortunately is homeless and social work has been involved in his case. He is being discharged to [facility]. He has appropriate contact information for [facility] for rehab. Medications prescribed as listed above. The patient does require repeat comprehensive metabolic panel in approximately 1 week to evaluate liver enzymes , especially with starting him on naltrexone, which can also cause transaminitis. He will be established with a primary care provider prior to discharge and that individual is unknown at this time. JAQUELIN MATHEWS [id number]/[facility] #: [id number] [place]
== END 2016-08-03 10:20 | disposition home health service (06) | DRG 775 ==
LOC: ED 09:47 → MED 12:28 → OBSVTOIN 07-31 08:45
PROVIDERS: ADMIT Internal Medicine; ATTEND Hospitalist
DX: F10.239 Alcohol dependence with withdrawal, unspecified (principal); R45.851 Suicidal ideations; K70.10 Alcoholic hepatitis without ascites; F43.10 Post-traumatic stress disorder, unspecified; F17.210 Nicotine dependence, cigarettes, uncomplicated; F10.229 Alcohol dependence with intoxication, unspecified; Y90.6 Blood alcohol level of 120-199 mg/100 ml; F41.9 Anxiety disorder, unspecified; Z59.0 Homelessness; F19.94 Other psychoactive substance use, unspecified with psychoactive substance-induced mood disorder; I10 Essential (primary) hypertension
CPT/HCPCS: 36415; 80048; 80053; 80076; 80307; 80320; 80329; 81003; 81015; 83735; 84100; 84443; 85014; 85018; 85025; 85610; 85730; 93005; 99406; A9270-GY; G0378; G0480; J2060; J2405; J3411